=== PATIENT | female | born 1980 | race Caucasian/White ===

== ENCOUNTER → 2017-01-17 | Outpatient (CLI) | payer OTHER ==
[~2017-01-17] MED LIST: ALBUTEROL17 GM; ALPRAZOLAM PO; CELEXA; COLACE PO; FLEXERIL PO; FLEXERIL10 MG PO; HYDROCODON-ACE1 EAC7 PO; IBUPROFEN800 MG PO; MEDROL DOSEPAK4 MG DOB; NORCO 10/3251 TAB PO; PRENATAL MULTIV1 TA1; ULTRAM PO; VICODIN 5/500 T1 TAB PO
--- NOTE | ~2017-01-17 | CT57 ---
[facility] A Service of [facility] RADIOLOGY TEXT RESULTS PATIENT: SHANTELLE SCHWARZ LOCATION: [facility] : 78 UNIT #: [id number] AGE: [address]: Sussy Pozo MD SEX: F ORDER DR: [id number] [address] [id number] [id number] MR#: [id number] Acc #: [id number] NAME: SHANTELLE SCHWARZ : 1980 SEX: F STUDY DATE/TIME: 01/17/2017 13:00 UNIT: [facility] ROOM: STUDY DESCRIPTION: CT Chest Wo Cont Attending Physician: Sussy Pozo M.D. Referring Physician: Sussy Pozo M.D. Ordering Physician: Sussy Pozo M.D. Primary Care Physician: Jesus Horton M.D. MEDICAL IMAGING REPORT This report is preliminary unless electronic signature is present. EXAM Chest CT, no contrast, 01/17/2017. INDICATION 36-year-old female with shortness of air and COPD. TECHNIQUE Noncontrast CT chest was performed. This CT exam was performed with one or more of the following radiation dose reduction techniques: automatic exposure control, adjustment of mA and/or kV according to patient size, and iterative reconstruction. COMPARISON 10/31/[address] CHEST: There is mild pulmonary hyperinflation. Lungs are otherwise clear. No pleural effusion. No suspicious pulmonary nodule. Included thyroid unremarkable. No pericardial effusion or axillary adenopathy. No mediastinal adenopathy. Aorta unremarkable. Included upper abdomen demonstrates no acute finding. There is a subtle 2.2 cm low-attenuation lesion in the dome of the liver. However, this is unchanged from a 10/31/[address] and is therefore benign based on long-term stability. Osseous structures demonstrate no suspicious bone lesion. IMPRESSION 1. Mild pulmonary hyperinflation. Lungs otherwise clear. No suspicious pulmonary nodule. 2. There is no adenopathy or pleural or pericardial effusion. 3. Upper abdomen demonstrates a benign liver lesion unchanged dating [facility] A Service of [facility] & [facility] RADIOLOGY TEXT RESULTS PATIENT: SHANTELLE SCHWARZ LOCATION: [facility] : 78 UNIT #: [id number] AGE: [address]: Sussy Pozo MD SEX: F ORDER DR: back to 2009. Dictated by... Avtar Schwarz M.D. THIS IS AN ELECTRONICALLY VERIFIED REPORT Avtar Schwarz M.D. at 01/18/2017 4:49 PM ALEX/lacie TD: 01/18/2017 10:01 JOB #: [id number] MEDICAL IMAGING REPORT Page 1 of 1
== END | disposition home or self-care (01) ==
LOC: SCT 12:43
DX: J44.9 Chronic obstructive pulmonary disease, unspecified (principal); R06.02 Shortness of breath; R91.8 Other nonspecific abnormal finding of lung field; K76.9 Liver disease, unspecified
CPT/HCPCS: 71250